=== PATIENT | female | born 1970 | race Caucasian/White ===

== ENCOUNTER 2022-01-04 21:32 | Emergency (ER) | payer SELFPAY ==
--- NOTE | 2022-01-04 22:57 | NUR ---
CALLED PT IN [facility]OB[facility] NO RESPONSE
--- NOTE | 2022-01-04 23:10 | NUR ---
CALLED PT IN [facility]OB[facility] NO RESPONSE
--- NOTE | 2022-01-04 23:52 | NUR ---
CALLED PT IN [facility]OB[facility] NO RESPONSE
--- NOTE | 2022-01-04 23:53 | NUR ---
PATIENT LEFT WITHOUT BEING SEEN BY . NO FURTHER CARE PROVIDED FOR PATIENT.
== END 2022-01-04 22:57 | disposition left against medical advice (07) ==
LOC: MED 21:32
DX: H57.10 Ocular pain, unspecified eye (principal); Z53.21 Procedure and treatment not carried out due to patient leaving prior to being seen by health care provider

== ENCOUNTER 2022-05-02 18:26 | Emergency (ER) | payer OTHER ==
[~2022-05-02] VITALS: Ht 160 cm; Wt 64.5 kg
[2022-05-02 19:45] VITALS: BP 115/75
[2022-05-02] MEDS ORDERED: TETRACAINE HCL/PF 0.5% OPTH 4 ML BTL ONE (20:54)
--- NOTE | 2022-05-02 20:54 | NUR ---
Dr. Schwarz examining patient.
[2022-05-02] MEDS ORDERED: FLUORESCEIN OPTH STRIP 1 MG OP ONE (20:55)
[2022-05-02] MEDS ORDERED: TETRACAINE HCL/PF 0.5% OPTH 4 ML BTL OP ONE (20:55)
[2022-05-02] MEDS ORDERED: OFLO5SOL OP (21:22)
[2022-05-02 21:43] VITALS: BP 115/75
--- NOTE | 2022-05-02 21:43 | NUR ---
Patient discharged with v/s stable. Written and verbal after care instructions given and explained. Patient alert, oriented and verbalized understanding of instructions. Ambulatory with steady gait. All questions addressed prior to discharge. ID band removed. Patient advised to follow up with PMD. Rx of OFLAXCIN given. Patient educated on indication of medication including possible reaction and side effects. Opportunity to ask questions provided and answered.
== END 2022-05-02 21:43 | disposition home or self-care (01) ==
LOC: MED 18:26
DX: H10.9 Unspecified conjunctivitis (principal); H53.149 Visual discomfort, unspecified; Z79.899 Other long term (current) drug therapy
CPT/HCPCS: 99283

== ENCOUNTER 2023-02-08 20:12 | Emergency (ER) | payer OTHER ==
[~2023-02-08] VITALS: Ht 157.5 cm; Wt 59.4 kg
[~2023-02-08 20:12] MED LIST: OFLO5SOL OP
[2023-02-08 20:58] VITALS: BP 117/53; PULSE 71; RESP 17; TEMP 98.6; O2SAT 98
[2023-02-08] MEDS ORDERED: CEPH-588 PO (23:25)
[2023-02-08] MEDS ORDERED: KETOROLAC 30 MG/ML VIAL IM ONE (23:25)
[2023-02-08] MEDS ORDERED: NAPR-54 PO (23:25)
== END 2023-02-08 23:40 | disposition home or self-care (01) ==
LOC: MED 20:12
DX: L03.113 Cellulitis of right upper limb (principal); Z79.899 Other long term (current) drug therapy
CPT/HCPCS: 73080; 96372; 99283; J1885